=== PATIENT | male | born 1995 | race Caucasian/White ===

== ENCOUNTER 2018-05-04 22:03 | Emergency (ER) | payer BC ==
[2018-05-04 22:44] LABS: Hematocrit 43 % (42-52); Hemoglobin 14.9 g/dl (14.0-18.0); Mean Corpuscular HGB Conc 35 g/dl (31-36); Mean Corpuscular Hemoglobin 29 pg (27-31); Mean Corpuscular Volume 84 fL (80-94); Mean Platelet Volume 7.5 fL (7.4-10.4); Platelet Count 303 10^3/ul (150-450); Red Cell Distribution Width 14 % (10.5-15); White Blood Count 12.6 10^3/ul (3.5-10.8)
[2018-05-04 22:59] LABS: EGFR Non-African American 101.3 (>60)
[2018-05-04] MEDS ORDERED: NS 0.9% 1000 ML* 1,000 ML IV ONE (23:15)
[2018-05-04] MEDS ORDERED: Ketorolac INJ* 30 MG/ML 1 ML VIAL IV PUSH ONE (23:15)
[2018-05-04] MEDS ORDERED: Dexamethasone IV* 4 MG/ML 1 ML (4 MG) IV SLOW PU ONE (23:15)
--- NOTE | 2018-05-04 23:26 | ED ---
Throat Pain/Nasal Congestion - HPI Summary HPI Summary: 22-year-old male presents with sore throat for the past couple days. He states he went to [place] and had a negative strep. He admits to an occasional cough. he admits to fever. He denies any difficulty swallowing. No chest pressures or shortness of breath. No abdominal pain. No nausea vomiting or diarrhea. He states he is here for antibiotics. He has been taking Advil occasionally. he has a presentation emile couple days and wants to be feeling better. He took some Adderall prior to coming here. - History of Current Complaint Chief Complaint: EDThroatPain Time Seen by Provider: 05/04/18 23:09 - Allergies/Home Medications Allergies/Adverse Reactions: Allergies Allergy/AdvReac Type Severity Reaction Status Date / Time No Known Allergies Allergy Verified 05/04/18 22:07 Home Medications: Home Medications Dextroamphetamine/Amphetamine [Adderall 20 mg Tablet] 20 mg PO DAILY 05/04/18 [ History Confirmed 05/04/18] PMH/Surg Hx/FS Hx/Imm Hx Endocrine/Hematology History: Denies: Hx Anticoagulant Therapy Respiratory History: Denies: Hx Asthma Infectious Disease History: No Infectious Disease History: Denies: Traveled Outside the [place] in Last 30 Days - Family History Known Family History: Negative: Respiratory Disease - Social History Alcohol Use: Occasionally Smoking Status (MU): Never Smoked Tobacco Review of Systems Positive: Fever Positive: Sore Throat, Nasal Discharge Negative: Chest Pain Positive: Cough. Negative: Shortness Of Breath Negative: Abdominal Pain All Other Systems Reviewed And Are Negative: Yes Physical Exam Triage Information Reviewed: Yes Vital Signs On Initial Exam: Initial Vitals Temp Pulse Resp BP Pulse Ox 103.5 F 136 18 143/77 98 05/04/18 22:04 05/04/18 22:04 05/04/18 22:04 05/04/18 22:04 05/04/18 22:04 Vital Signs Reviewed: Yes Appearance: Positive: Well-Appearing Skin: Positive: Warm, Dry Head/Face: Positive: Normal Head/Face Inspection Eyes: Positive: Normal, EOMI, JEYSON, Conjunctiva Clear ENT: Positive: Pharyngeal erythema, TMs normal, Tonsillar swelling, Uvula midline, Other - soft palate symmetric. Negative: Tonsillar exudate, Trismus, Muffled voice Neck: Positive: Supple, Nontender, No Lymphadenopathy Respiratory/Lung Sounds: Positive: Clear to Auscultation, Breath Sounds Present Cardiovascular: Positive: Normal, RRR Abdomen Description: Positive: Nontender, Soft Bowel Sounds: Positive: Present Musculoskeletal: Positive: Normal Neurological: Positive: Normal Psychiatric: Positive: Normal Diagnostics - Vital Signs Vital Signs Temp Pulse Resp BP Pulse Ox 05/04/18 22:04 103.5 F 136 18 143/77 98 - Laboratory Lab Results: Lab Results 05/04/18 05/04/18 Range/Units 22:29 22:29 WBC 12.6 H (3.5-10.8) 10^3/ul RBC 5.10 (4.00-5.40) 10^6/ul Hgb 14.9 (14.0-18.0) g/dl Hct 43 (42-52) % MCV 84 (80-94) fL MCH 29 (27-31) pg MCHC 35 (31-36) g/dl RDW 14 (10.5-15) % Plt Count 303 (150-450) 10^3/ul MPV 7.5 (7.4-10.4) fL Neut % (Auto) Pending Lymph % (Auto) Pending [place] % (Auto) Pending Eos % (Auto) Pending Baso % (Auto) Pending Absolute Neuts (auto) Pending Absolute Lymphs (auto) Pending Absolute Monos (auto) Pending Absolute Eos (auto) Pending Absolute Basos (auto) Pending Absolute Nucleated RBC Pending Nucleated RBC % Pending Sodium 134 L (135-145) mmol/L Potassium 4.1 (3.5-5.0) mmol/L Chloride 97 L (101-111) mmol/L Carbon Dioxide 29 (22-32) mmol/L Anion Gap 8 (2-11) mmol/L BUN 12 (6-24) mg/dL Creatinine 0.94 (0.67-1.17) mg/dL Est GFR ( Amer) 122.6 (>60) Est GFR (Non-Af Amer) 101.3 (>60) BUN/Creatinine Ratio 12.8 (8-20) Glucose 115 H (70-100) mg/dL Calcium 10.0 (8.6-10.3) mg/dL Monoscreen Negative (Negative) Result Diagrams: 05/04/18 22:29 05/04/18 22:29 Lab Statement: Any lab studies that have been ordered have been reviewed, and results considered in the medical decision making process. - Radiology chest Radiology Interpretation Completed By: ED Physician Summary of Radiographic Findings: nad Re-Evaluation - Re-Evaluation First Eval Re-Evaluation Time: 23:40 Change: Improved Comment: feeling better after fluids EENT Course/Dx - Course Course Of Treatment: 22-year-old male presents with sore throat for the past couple days. He states he went to [place] and had a negative strep. He admits to an occasional cough. he admits to fever. He denies any difficulty swallowing. No chest pressures or shortness of breath. No abdominal pain. No nausea vomiting or diarrhea. He states he is here for antibiotics. He has been taking Advil occasionally. he has a presentation emile couple days and wants to be feeling better. He took some Adderall prior to coming here. On exam pharynx erythematous. Tonsils +2. Uvula midline. Soft palate symmetric. Lungs clear to auscultation. Chest x-ray read by me as normal. Strep negative. [place]ville negative. White blood cell elevated. Lactic normal. Gave fluids and Tylenol ibuprofen and feeling better. Discussed will add on Decadron and magic mouthwash for the sore throat. Discussed could add on antibiotic but is likely viral so that place on antibiotics may cause rash so patient declined antibiotic at this time. Patient understands agrees with plan. - Differential Diagnoses Differential Diagnoses: Influenza, Pharyngitis, Tonsilitis - Diagnoses Provider Diagnoses: Pharyngitis Discharge - Sign-Out/Discharge Documenting (check all that apply): Patient Departure - Discharge Plan Condition: Good Disposition: HOME Prescriptions: Dexamethasone TAB* [Decadron TAB*] 4 mg PO DAILY #4 tab Magic Mouth Was-SALEEM/MAAL/LIDO* 5 ml SWISH SPIT QID #100 ml Patient Education Materials: Pharyngitis (ED) Referrals: No Primary Care Phys,NOPCP [Primary Care Provider] - Additional Instructions: Magic mouthwash 5ml swish and spit can use 4x a day Take steroid once a day for 4 days Take Tylenol or ibuprofen for pain every 6 hours Can gargle salt water Can use cough drops or products such as cloraseptic spray Return to ED if develop fever does not respond to Tylenol or ibuprofen, inability to swallow, or difficulty breathing or any new or worsening symptoms - Billing Disposition and Condition Condition: GOOD Disposition: Home
[2018-05-04] MEDS ORDERED: Acetaminophen TAB* 325 MG PO ONE (23:29)
[2018-05-05 00:25] LABS: Monocytes % 4 % (0-7)
[2018-05-05 01:00] VITALS: BP 121/74
== END 2018-05-05 00:59 | disposition home or self-care (01) ==
LOC: ED 22:03
DX: J02.9 Acute pharyngitis, unspecified (principal); R05 Cough; R07.9 Chest pain, unspecified; R50.9 Fever, unspecified
CPT/HCPCS: 36415; 71046; 80048; 83605; 85025; 86308; 86664; 86665; 87040; 96374; 96375; 99284; A9270-GY; J1100; J1885